=== PATIENT | female | born 1975 | race African-American/Black ===

== ENCOUNTER 2019-04-25 18:36 | Emergency (ER) | payer SELFPAY ==
[~2019-04-25] VITALS: Ht 157.5 cm; Wt 62.6 kg
[2019-04-25 18:51] VITALS: BP 122/70
--- NOTE | 2019-04-25 18:51 | NUR ---
ED Nurse Note: PT BROUGHT IN BY AMBULANCE PICKED UP FROM [facility] DUE TO HYPOGLYCEMIA. BS TAKEN 18 IN THE FIELD. EMS GAVE D10 AND BS WENT UP TO 129 IN TRIAGE. PT IS AAO X4, BUT SLOW IN RESPONDING TO QUESTIONS. NO ACTIVE VOMITING AT THIS TIME.
[2019-04-25] MEDS ORDERED: D5 1/2NS 1,000 ML IV SCH (19:15)
[2019-04-25 19:16] LABS: HEMATOCRIT 37.4 % (37.0-47.0); HEMOGLOBIN 12.4 G/DL (12.0-16.0); MEAN CORPUSCULAR VOLUME 98 FL (80-99); PLATELET COUNT 234 K/UL (150-450); RED BLOOD COUNT 3.83 M/UL (4.20-5.40); RED CELL DISTRIBUTION WIDTH 12.1 % (11.6-14.8); WHITE BLOOD COUNT 3.5 K/UL (4.8-10.8)
--- NOTE | 2019-04-25 19:17 | NUR ---
HAND-OFF: Report given to AMRIK DAY.
[2019-04-25 19:49] LABS: ANION GAP 9 mmol/L (5-15); BLOOD UREA NITROGEN 3 mg/dL (7-18); CALCIUM 8.4 MG/DL (8.5-10.1); CARBON DIOXIDE 26 MMOL/L (21-32); CHLORIDE 104 MMOL/L (98-107); CREATININE 0.9 MG/DL (0.55-1.30); POTASSIUM 3.2 MMOL/L (3.5-5.1); SODIUM 139 MMOL/L (136-145)
[2019-04-25 19:53] LABS: ALANINE AMINOTRANSFERASE 12 U/L (12-78); ALBUMIN 3.1 G/DL (3.4-5.0); ALBUMIN/GLOBULIN RATIO 0.8 (1.0-2.7); ALKALINE PHOSPHATASE 65 U/L (46-116); ASPARTATE AMINO TRANSFERASE 23 U/L (15-37); BILIRUBIN,TOTAL 0.4 MG/DL (0.2-1.0)
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
[2019-04-25 22:20] VITALS: BP 122/70
--- NOTE | 2019-04-25 22:20 | NUR ---
ER DISCHARGE NOTE: Patient is cleared to be discharged per ERMD, pt is aox4, on room air, with stable vital signs. pt was given dc and prescription instructions, pt was able to verbalize understanding, pt id band and iv site removed without complications. pt is able to ambulate with steady gait. pt took all belongings.
--- NOTE | 2019-04-27 13:57 | Cardiology Report ---
APPROVED REPORT EKG Measurement Heart [id number] Normal sinus rhythm Normal ECG
== END 2019-04-25 22:20 | disposition home or self-care (01) ==
LOC: EDBD 18:36 → EMR 19:10
DX: E16.2 Hypoglycemia, unspecified (principal); F10.929 Alcohol use, unspecified with intoxication, unspecified; Y90.7 Blood alcohol level of 200-239 mg/100 ml
CPT/HCPCS: 36415; 80053; 85007; 85025; 93005; 96361; 96365; 96375; 99291; G0480; J2405; S0028; J7030

== ENCOUNTER 2019-07-03 05:17 | Emergency (ER) | payer OTHER ==
[~2019-07-03] VITALS: Ht 160 cm; Wt 56.7 kg
[2019-07-03 05:32] VITALS: BP 126/70
[2019-07-03] MEDS ORDERED: NORCO 5-325 TA1 EACH ORAL (05:44)
[2019-07-03] MEDS ORDERED: IBUPROFEN600 MG ORAL (05:44)
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
[2019-07-03] MEDS ORDERED: HYDROcodone/Acetamin 5/325 tab ORAL ONE (05:45)
[2019-07-03 05:48] VITALS: BP 126/70
--- NOTE | 2019-07-03 15:19 | Diagnostic Imaging Report ---
Indication: Back pain Comparison: None Findings: 3 views of the lumbar spine were obtained. No acute fracture or malalignment is identified. Vertebral body heights and disk spaces are well maintained. Posterior elements are unremarkable. Impression: No acute findings.
== END 2019-07-03 05:48 | disposition home or self-care (01) ==
LOC: EMR 05:39
DX: S39.012A Strain of muscle, fascia and tendon of lower back, initial encounter (principal); V43.52XA Car driver injured in collision with other type car in traffic accident, initial encounter; Y92.411 Interstate highway as the place of occurrence of the external cause; Z88.5 Allergy status to narcotic agent
CPT/HCPCS: 72020; Z7502; 99283

== ENCOUNTER 2020-09-06 06:41 | Emergency (ER) | payer OTHER ==
[~2020-09-06] VITALS: Ht 157.5 cm; Wt 54.4 kg
[~2020-09-06 06:41] MED LIST: ALBUTEROL SULF8.5 GM INH; IBUPROFEN600 MG ORAL; NORCO 5-325 TA1 EACH ORAL
[2020-09-06 07:07] VITALS: BP 120/70
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
[2020-09-06] MEDS ORDERED: Ketorolac 60mg Inj IM ONE (07:15)
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
[2020-09-06] MEDS ORDERED: IBUPROFEN600 M1 ORAL (09:00)
[2020-09-06] MEDS ORDERED: ROBAXIN-500MG ORAL (09:00)
--- NOTE | 2020-09-06 15:45 | Diagnostic Imaging Report ---
Indication: Traumatic lumbar spine pain Technique: 3 views of the lumbar spine Comparison: None Findings:Bony alignment is normal. Vertebral body heights are preserved. The disc spaces are preserved. No acute fracture. Pedicles are intact. Sacral arches are preserved. Sacroiliac joint spaces are preserved Impression: Negative
== END 2020-09-06 09:20 | disposition home or self-care (01) ==
LOC: EMR 06:50
DX: S39.012A Strain of muscle, fascia and tendon of lower back, initial encounter (principal); V43.62XA Car passenger injured in collision with other type car in traffic accident, initial encounter; Y92.410 Unspecified street and highway as the place of occurrence of the external cause; Z88.6 Allergy status to analgesic agent
CPT/HCPCS: 72020; 81025; 96372; Z7502; 99284